=== PATIENT | female | born 1960 | race Caucasian/White ===

== ENCOUNTER 2019-10-10 15:16 | Observation (INO) | payer MEDICARE, SELFPAY ==
[2019-10-10 15:19] VITALS: BP 159/77; PULSE 111; RESP 18; TEMP 36.8; O2SAT 96
--- NOTE | 2019-10-10 15:38 | W.ED.GENAD ---
Discharge Plan Disposition Patient Disposition: [facility] INPATIENT Condition: Stable Discharge Details Chief Complaint: GI Bleed Clinical Impression: Colitis Primary Care Provider: Tanya Boston ED Provider: Saeed Puente Home Meds and New Rx's Prescriptions: No Action multivitamin [ESSENTIAL One Daily] 1 EACH tablet 1 tab PO DAILY RF: 0 ascorbic acid (vitamin C) [Vitamin C] 500 MG tablet 1 tab PO DAILY RF: 0 ibuprofen [Motrin IB] 200 MG tablet 2 tab PO PRN RF: 0 Probiotic 1 EACH capsule 1 ea PO DAILY RF: 0 GenTeal Mild 15 ML drops 1 drp OU PRN PRNRF: 0 naltrexone 50 mg Tablet 4.5 mg PO DAILY RF: 0 flaxseed oil 1,000 mg Capsule 1,000 mg PO DAILY RF: 0 aspirin 81 mg Tablet,Chewable 81 mg PO DAILY RF: 0 Medical Decision Making 59-year-old female with complex regional pain syndrome, presents with day 5 of intermittent episodes of crampy lower abdominal pain with associated loose watery stools and some spotting of blood with the stool today. She feels mildly weak and states she vomited once. She had chills but no documented fever. Rectal exam is without mass and guaiac negative mucus present. She arrives with a temp of 36.8, tachycardic with a pulse of 110, blood pressure 159/77. Tender in the abdomen on exam. Differential diagnosis includes colitis, diverticulitis, appendicitis. Patient had IV access established with antecedent EMLA cream, was referred for laboratory testing and CT scan. The diagnostic studies reveal a white blood cell count is elevated at 13, hematocrit 39, platelets 422 which may be acute phase reactant. She does have a left shift with elevated ANC. Chemistries reassuring. CT scan reveals thickening in the proximal sigmoid colon most consistent with colitis. Note of appendix at the upper limits of normal with subtle fat stranding present. Most consistent with acute proximal colitis. Discussed with Dr. Olson. Will admit as an observation overnight. Lab Data Lab results reviewed: Yes I reviewed the patient's lab results. Labs: Laboratory Results - last 24 hr 10/10/19 10/10/19 10/10/19 16:00 16:00 16:00 WBC 13.25 H RBC 4.37 Hgb 13.0 Hct 39.6 MCV 90.6 MCH 29.7 MCHC 32.8 RDW 13.4 Plt Count 422 H MPV 8.5 Immature Gran % 0.2 Neutrophils % 74.5 Lymphocytes % 16.0 Monocytes % 8.8 Eosinophils % 0.3 Basophils % 0.2 Absolute Neutrophils 9.87 H Absolute Lymphocytes 2.12 Absolute Monocytes 1.17 H Absolute Eosinophils 0.04 Absolute Basophils 0.03 PT 10.6 INR 1.1 Sodium 140 Potassium 3.3 L Chloride 103 Carbon Dioxide 24.5 Anion Gap 12.5 H BUN 10 Creatinine 0.69 Estimated GFR/1.73 m2 >= 60.00 Glucose 108 H Calcium 9.2 Total Bilirubin 0.5 AST 28 ALT 41 Alkaline Phosphatase 76 Total Protein 7.9 Albumin 3.6 HPI General Mode of arrival: ambulatory. Date/Time Provider Initiated Documentation: 10/10/19 15:23. Limitations to Documentation: no limitations. Information obtained by: patient. History of Present Illness 59 year old F presents to the emergency department with the chief complaint of Lower abdominal pain with small amounts of rectal bleeding, described as moderate, Quality is described as dull, and is localized to the abdomen. Patient reports no radiation. Patient started experiencing this day(s) and it has been intermittent. No relieving factors improve symptom(s), No exacerbating factors reported . Patient notes loss of appetite, nausea/vomiting and other (Watery loose diarrhea). Patient did receive the following treatments prior to arrival, none Related Data Home Medications Medication Instructions Recorded Confirmed ascorbic acid (vitamin C) [Vitamin 1 tab PO DAILY 01/31/13 10/10/19 C] ibuprofen [Motrin Ib] 2 tab PO PRN 01/31/13 10/10/19 multivitamin [Essential One Daily] 1 tab PO DAILY 01/31/13 10/10/19 Lactobacillus acidophilus 1 ea PO DAILY 12/29/14 10/10/19 [Probiotic] artificial tears(hypromellose) 1 drp OU PRN PRN 12/29/14 10/10/19 [Genteal Mild] aspirin 81 mg PO DAILY 10/10/19 10/10/19 flaxseed oil 1,000 mg PO DAILY 10/10/19 10/10/19 naltrexone 4.5 mg PO DAILY 10/10/19 10/10/19 Allergies Allergy/AdvReac Type Severity Reaction Status Date / Time sodium lauryl sulfate Allergy Intermediate Skin Rash Unverified 10/10/19 15:22 clopidogrel bisulfate Allergy Mild Skin Rash Unverified 10/10/19 15:22 [From Plavix] methylprednisolone AdvReac HEADACHE Unverified 10/10/19 15:22 General Stated Complaint: GI Bleed GUY: 3 Review of Systems Narrative: No food exposures or travel, no suspicious sick contacts. Denies chest pain, shortness of breath, and no change to chronic pain. [facility] Family History Mother Diabetes Stroke Father Diabetes Heart disease Sister No problems noted. Sister No problems noted. Sister No problems noted. Brother No problems noted. Brother No problems noted. Grandfather Stroke Grandmother Neoplasm Son No problems noted. Social History Smoking/Tobacco Use Status: Former Tobacco Use Drug use: Never Exam Narrative Exam Narrative: GEN: awake, alert, oriented 3. Pleasant, well groomed, interactive. HEAD: Normocephalic, atraumatic ENT: Mucous membranes moist, oropharynx unremarkable, External ear exam unremarkable EYES: PERRL, EOMI NECK: Full ROM, no MARCUS, no menigismus CHEST/RESP: Nontender, clear to auscultation bilateral, no wheeze/rhonchi/rales CARDIOVASCULAR: Regular and tachycardic, no murmur, rub julian. 2+ Rad pulse bilateral ABDOMEN: Soft, right greater than left lower abdominal tenderness present, no mass. +Bowel sounds EXT: Full ROM, no edema, no rash Neuro: Grossly normal neurologic exam, conversant, interactive. Psych: Speech fluent, thoughts congruent, affect normal Course Vital Signs Vital signs: Vital Signs Temperature 36.8 C 10/10/19 15:19 Pulse 111 H 10/10/19 15:19 Respiratory Rate 18 10/10/19 15:19 Blood Pressure 159/77 H 10/10/19 15:19 Pulse Oximetry 96 10/10/19 15:19 Temperature 36.8 C 10/10/19 15:19 Temperature Source Skin 10/10/19 15:19 Pulse 111 H 10/10/19 15:19 Respiratory Rate 18 10/10/19 15:19 Blood Pressure 159/77 H 10/10/19 15:19 Blood Pressure Position Sitting 10/10/19 15:19 Pulse Oximetry 96 10/10/19 15:19 Oxygen Delivery Method Room Air 10/10/19 15:19 Oxygen Flow Rate 0 10/10/19 15:19 Pain Level 6 10/10/19 15:19
[2019-10-10] MEDS: Lidocaine/Prilocaine Cream 5 GM TUBE TP (15:45)
[2019-10-10 16:17] LABS: Abs Immature Grans 0.03 k/cumm (0.0-0.09); Absolute Basophil Count 0.03 k/cumm (0.0-0.2); Absolute Eosinophil Count 0.04 k/cumm (0.0-0.7); Absolute Lymphocyte Count 2.12 k/cumm (1.2-3.4); Absolute Monocyte Count 1.17 k/cumm (0.11-0.7); Absolute Neutrophil Count 9.87 k/cumm (1.2-6.7); Basophils % 0.2; Eosinophils % 0.3; HCT 39.6 % (36.0-46.0); Immature Grans % 0.2; Mean Corp. HGB Concentration 32.8 g/dL (32.0-36.0); Mean Corpuscular Hemoglobin 29.7 pg (27.0-33.0); Mean Corpuscular Volume 90.6 fL (80-95); Mean Platelet Volume 8.5 fL (8.0-11.0); Monocytes % 8.8; Neutrophils % 74.5; Platelet Count 422 x1000/uL (130-400); RBC 4.37 m/cumm (4.00-5.20); RBC Distribution Width 13.4 % (11.7-14.6); White Blood Cell Count 13.25 k/cumm (4.4-10.8)
[2019-10-10] MEDS: Normal Saline 1,000 ML 125 ML IV (16:18)
[2019-10-10] MEDS: Normal Saline Flush 10 ML SYR IVP (16:18)
[2019-10-10 16:27] LABS: INR 1.1 (0.9-1.1); Prothrombin Time 10.6 sec (9.3-11.0)
[2019-10-10 16:30] VITALS: BP 134/74; PULSE 93; RESP 18; TEMP 36.2; O2SAT 94
[2019-10-10 16:31] LABS: ALT 41 U/L (14-59); AST 28 U/L (15-37); Albumin 3.6 g/dL (3.4-5.0); Alkaline Phosphatase 76 U/L (46-116); Anion Gap 12.5 mmol/L (3-11); BUN 10 mg/dL (7-18); Bilirubin, Total 0.5 mg/dL (0.2-1.0); CO2 24.5 mmol/L (21.0-32.0); CREATININE 0.69 mg/dL (0.55-1.02); Calcium 9.2 mg/dL (8.5-10.1); Chloride 103 mmol/L (98-107); Glucose 108 mg/dL (74-106); Potassium 3.3 mmol/L (3.5-5.1); Sodium 140 mmol/L (136-145); Total Protein 7.9 g/dL (6.4-8.2)
[2019-10-10] MEDS: Omnipaque 350 MG/ML 100 ML BTL IJ (16:39)
--- NOTE | 2019-10-10 17:00 | DI.CT_ITS ---
EXAM: CT ABDOMEN PELVIS W CLINICAL HISTORY: R > L lower abd pain and hematochezia TECHNIQUE: Imaging Protocol: Axial computed tomography images with coronal and sagittal reformatted images were created and reviewed CONTRAST MATERIAL: Intravenous: Omnipaque 350 Contrast volume:100 mL contrast route:IV - Oral: No COMPARISON: No exams were available for comparison FINDINGS: ABDOMEN: Lung Bases: Normal where visualized. Liver: There does appear to be diffuse decreased attenuation of the liver suggesting hepatic steatosi s. No measurable mass. The portal, superior mesenteric and splenic veins are patent. Gallbladder and biliary tract: No radiodense calculus or dilation. Pancreas: Normal density, no abnormal calcifications or inflammatory process. Spleen: Normal. Incidental note is made of a small accessory spleen. Kidneys: Normal size, contour and axis. No radiodense stones or obstructive uropathy. There are tiny hypodensities seen within both kidneys. They are too small for further characterization but likely r eflect small cysts. There is a 1.6 centimeter cyst in the lower pole of the right kidney. Adrenal glands: No masses seen. Abdominal Aorta: Abdominal portion non-dilated. PELVIS: Bladder: Symmetric distention, no gross wall thickening. Bowel: There is marked mucosal thickening seen in the proximal sigmoid colon. Mild increased attenua tion in the surrounding fat is noted. The appendix is fluid filled. It measures 8 millimeters in di ameter. Mild increased stranding in the periappendiceal fat is noted. No appendicolith is present. The remainder of the bowel is unremarkable. Peritoneal cavity: No ascites, collection or mesenteric inflammatory response. Bones: Within normal limits. There is a mild left convex scoliotic curvature of the lumbar spine. Reproductive organs: The uterus is enlarged. There are several masses seen within the uterus. These likely reflect uterine fibroids. Lymph nodes: There is a portacaval lymph node measuring 0.6 centimeters in short axis diameter. Impression: 1. Marked mucosal thickening in the proximal sigmoid colon consistent with colitis. Likely reflects an inflammatory or infectious colitis. Ischemic colitis is considered less likely. 2. Appendix at the upper limits normal with periappendiceal inflammatory change acute appendicitis ca nnot be excluded. 3. Multiple uterine masses most consistent with fibroid uterus. Pelvic ultrasound may be obtained if clinically appropriate. DATA REPOSITORY: All CT scans at this facility are submitted to the National Radiology Data Registry (NRDR) Dose Index Registry (DIR) with the [employer] (A[employer]). RADIATION OPTIMIZATION: All CT scans at this facility use at least one of these dose optimization te chniques: automated exposure control; mA and/or kV adjustment per patient size (includes targeted exa ms where dose is matched to clinical indication); or iterative reconstruction.
--- NOTE | 2019-10-10 17:26 | DI.VRAD_ITS ---
PROCEDURE INFORMATION: Exam: CT Abdomen And Pelvis With Contrast Exam date and time: 10/10/2019 4:58 PM Age: 59 years old Clinical history: Abdominal pain; Other: Pain r>l, hematochezia TECHNIQUE: Imaging protocol: Computed tomography of the abdomen and pelvis with intravenous contrast. Contrast material: OMNIPAQUE 350; Contrast volume: 100 ml; Contrast route: IV 20G LAC; COMPARISON: No relevant prior studies available. FINDINGS: Liver: Normal. No mass. Gallbladder and bile ducts: Normal. No calcified stones. No ductal dilation. Pancreas: Normal. No ductal dilation. Spleen: 1 cm splenule. The spleen is unremarkable. Adrenals: Normal. No mass. Kidneys and ureters: Multiple sub-5 mm low density left renal lesions too small to characterize but statistically most likely representing cysts. 16mm right central lower pole renal cyst is with adjacent smaller lesion too small to characterize. Additional tiny low-density focus upper pole of right kidney too small to characterize. Stomach and bowel: Marked mucosal thickening proximal half of sigmoid colon with adjacent fat stranding Appendix: 8 mm diameter of proximal appendix (series 7, image 44) at the upper limits of normal. There is some minimal adjacent fat stranding. Intraperitoneal space: Unremarkable. No free air. No significant fluid collection. Vasculature: Unremarkable. No abdominal aortic aneurysm. Lymph nodes: 6 mm short axis lymph node in portacaval space. Bladder: Unremarkable as visualized. Reproductive: Enlarged uterus with multiple inhomogeneous masses consistent with uterine fibroids with the largest on the right measuring 4.2 cm in diameter. Bones/joints: Minimal convex left scoliosis lumbar spine. Soft tissues: Unremarkable. IMPRESSION: 1. Marked mucosal thickening proximal half of sigmoid colon most consistent with colitis. Infectious or inflammatory causes would be most likely with vascular left likely. 2. Appendix at the upper limits of normal with a subtle fat stranding. Acute appendicitis would be difficult to entirely exclude in the appropriate clinical setting. 3. Nonspecific 6 mm short axis portal caval lymph node. 4. Multiple uterine masses most consistent with fibroid uterus. Confirmation with pelvic ultrasound may be beneficial if clinically indicated. Dictated and Authenticated by: Issa Pearce MD. Ordering:DON Tipton MD
[2019-10-10 17:30] VITALS: BP 142/79; PULSE 92; TEMP 37; O2SAT 96
[2019-10-10 17:45] LABS: Bilirubin Negative (Negative); Blood Trace-intact (Negative); Clarity Clear (Clear); Glucose Negative (Negative); Ketones Trace mg/dL (Negative); Leukocyte Esterase Negative (Negative); Nitrite Negative (Negative); Urobilinogen 0.2 EU/dL (Up TO 0.2)
[2019-10-10] MEDS: PIPERACILLIN/TAZO 3.375 GM in Normal Saline 50 ML IVPB (17:47)
[2019-10-10 18:10] LABS: Bacteria Negative HPF (Negative); C & S Indicated? No; Casts Negative LPF (Negative); Crystals Negative HPF (Negative); Epithelial Cells Few HPF (Negative); Mucus Negative (Negative); Other Cells Negative (Negative); RBC 0-2 HPF (0-2); WBC 0-2 HPF (0-5)
[2019-10-10 18:11] VITALS: BP 128/77; PULSE 78; RESP 16; TEMP 36.6; O2SAT 96
[2019-10-10 18:32] VITALS: BP 153/74; PULSE 104; RESP 18; TEMP 37.6; O2SAT 94
[2019-10-10] MEDS: POTASSIUM CHLORIDE/0.9% NACL 1,000 ML 100 MEQ IV (18:52)
[2019-10-10 19:26] VITALS: BP 133/78; PULSE 96; RESP 16; TEMP 37.2; O2SAT 95
[2019-10-10] MEDS: ACETAMINOPHEN 1,000 MG/100 ML BTL 400 MG IVPB (20:47)
[2019-10-11] MEDS: Piperacillin/Tazobactam 3.375 GM VIAL (00:31)
[2019-10-11] MEDS: PIPERACILLIN/TAZO 3.375 GM in Normal Saline 50 ML IVPB ×2 (00:31→05:33)
[2019-10-11 00:47] VITALS: BP 116/72; PULSE 86; RESP 16; TEMP 37.2; O2SAT 93
[2019-10-11] MEDS: POTASSIUM CHLORIDE/0.9% NACL 1,000 ML 100 MEQ IV (06:38)
[2019-10-11] MEDS: ACETAMINOPHEN 1,000 MG/100 ML BTL 400 MG IVPB (06:38)
[2019-10-11 07:01] LABS: Abs Immature Grans 0.02 k/cumm (0.0-0.09); Absolute Basophil Count 0.03 k/cumm (0.0-0.2); Absolute Eosinophil Count 0.09 k/cumm (0.0-0.7); Absolute Lymphocyte Count 1.63 k/cumm (1.2-3.4); Absolute Monocyte Count 0.97 k/cumm (0.11-0.7); Absolute Neutrophil Count 8.02 k/cumm (1.2-6.7); Basophils % 0.3; Eosinophils % 0.8; HCT 36.7 % (36.0-46.0); HGB 11.9 g/dL (12.0-15.5); Immature Grans % 0.2; Lymphocytes % 15.1; Mean Corp. HGB Concentration 32.4 g/dL (32.0-36.0); Mean Corpuscular Hemoglobin 29.8 pg (27.0-33.0); Mean Platelet Volume 8.6 fL (8.0-11.0); Neutrophils % 74.6; Platelet Count 387 x1000/uL (130-400); RBC 3.99 m/cumm (4.00-5.20); RBC Distribution Width 13.5 % (11.7-14.6); White Blood Cell Count 10.76 k/cumm (4.4-10.8)
[2019-10-11 07:19] LABS: Anion Gap 9.1 mmol/L (3-11); BUN 5 mg/dL (7-18); CO2 24.9 mmol/L (21.0-32.0); Calcium 8.3 mg/dL (8.5-10.1); Chloride 107 mmol/L (98-107); Glucose 109 mg/dL (74-106); Potassium 3.5 mmol/L (3.5-5.1); Sodium 141 mmol/L (136-145)
[2019-10-11 07:20] VITALS: BP 120/72; PULSE 83; RESP 18; TEMP 37.1; O2SAT 94
--- NOTE | 2019-10-11 07:58 | W.PM.HP.N ---
Date of service: 10/11/19 Time of Service: 07:58 Assessment and Plan Assessment and plan (1) Colitis: Status: Acute Assessment and plan: Patient was kept overnight for observation. She tolerated clear liquids over night and her abdominal pain has resolved. She denies having any nausea or vomiting. Will trial regular diet with breakfast. Discussed that we would recommend her having a Colonoscopy as an out patient. Patient expressed that she would like to see GI at [facility]. She will follow up with her PCP regarding this. If tolerating regular diet with breakfast, will send her home later today on antibiotics. History of Present Illness History of Present Illness Chief Complaint: Abdominal pain, Colitis, GI bleed Narrative: Patient presented to the ER with complaints of diarrhea and spotting of blood with BMs. CT scan in ER showed Colitis. This morning she reports significant improvement in her abdominal pain and has been tolerating clear liquids. She reports that she has been passing flatus. She states that she has never had a screening Colonoscopy. Review of Systems Constitutional Constitutional: Reports as per HPI Respiratory Respiratory: Denies cough and Denies wheezing Gastrointestinal Gastrointestinal: Reports abdominal pain (Improved overnight) and Reports change in bowel habits Allergic/Immunologic Allergic/Immunologic: Denies wheezing PFSH Family History Mother Diabetes Stroke Father Diabetes Heart disease Sister No problems noted. Sister No problems noted. Sister No problems noted. Brother No problems noted. Brother No problems noted. Grandfather Stroke Grandmother Neoplasm Son No problems noted. Social History Smoking/Tobacco Use Status: Former Tobacco Use Drug use: Never Meds Home Medications and Allergies Home Medications Medication Instructions Recorded Confirmed Type ascorbic acid (vitamin C) [Vitamin 1 tab PO DAILY 01/31/13 10/10/19 History C] ibuprofen [Motrin Ib] 2 tab PO PRN 01/31/13 10/10/19 History multivitamin [Essential One Daily] 1 tab PO DAILY 01/31/13 10/10/19 History Lactobacillus acidophilus 1 ea PO DAILY 12/29/14 10/10/19 History [Probiotic] artificial tears(hypromellose) 1 drp OU PRN PRN 12/29/14 10/10/19 History [Genteal Mild] aspirin 81 mg PO DAILY 10/10/19 10/10/19 History flaxseed oil 1,000 mg PO DAILY 10/10/19 10/10/19 History naltrexone 4.5 mg PO DAILY 10/10/19 10/10/19 History Allergies Allergy/AdvReac Type Severity Reaction Status Date / Time sodium lauryl sulfate Allergy Intermediate Skin Rash Unverified 10/10/19 15:22 clopidogrel bisulfate Allergy Mild Skin Rash Unverified 10/10/19 15:22 [From Plavix] methylprednisolone AdvReac HEADACHE Unverified 10/10/19 15:22 Exam Const General: cooperative, healthy appearing and comfortable Orientation: alert and oriented x3 Resp Effort & Inspection: normal respiratory effort, no audible wheezes and no cough GI Inspection: normal to inspection and non-distended Palpation: soft, no guarding and nontender Auscultation: normal bowel sounds Results Labs Result diagrams: 10/11/19 06:38 10/11/19 06:38 Labs: Laboratory Results - last 24 hr 10/10/19 10/10/19 10/10/19 16:00 16:00 16:00 WBC 13.25 H RBC 4.37 Hgb 13.0 Hct 39.6 MCV 90.6 MCH 29.7 MCHC 32.8 RDW 13.4 Plt Count 422 H MPV 8.5 Immature Gran % 0.2 Neutrophils % 74.5 Lymphocytes % 16.0 Monocytes % 8.8 Eosinophils % 0.3 Basophils % 0.2 Absolute Neutrophils 9.87 H Absolute Lymphocytes 2.12 Absolute Monocytes 1.17 H Absolute Eosinophils 0.04 Absolute Basophils 0.03 PT 10.6 INR 1.1 Sodium 140 Potassium 3.3 L Chloride 103 Carbon Dioxide 24.5 Anion Gap 12.5 H BUN 10 Creatinine 0.69 Estimated GFR/1.73 m2 >= 60.00 Glucose 108 H Calcium 9.2 Total Bilirubin 0.5 AST 28 ALT 41 Alkaline Phosphatase 76 Total Protein 7.9 Albumin 3.6 Urine Color Urine Clarity Urine pH Ur Specific [place] Urine Protein Urine Ketones Urine Blood Urine Nitrite Urine Bilirubin Urine Urobilinogen Ur Leukocyte Esterase Urine RBC Urine WBC Ur Epithelial Cells Urine Crystals Urine Bacteria Urine Casts Urine Mucus Urine Other Ur Culture Indicated? Urine Glucose Patient ABO/Rh Antibody Screen 10/10/19 10/10/19 10/11/19 16:00 17:22 06:38 WBC RBC Hgb Hct MCV MCH MCHC RDW Plt Count MPV Immature Gran % Neutrophils % Lymphocytes % Monocytes % Eosinophils % Basophils % Absolute Neutrophils Absolute Lymphocytes Absolute Monocytes Absolute Eosinophils Absolute Basophils PT INR Sodium 141 Potassium 3.5 Chloride 107 Carbon Dioxide 24.9 Anion Gap 9.1 BUN 5 L Creatinine 0.70 Estimated GFR/1.73 m2 >= 60.00 Glucose 109 H Calcium 8.3 L Total Bilirubin AST ALT Alkaline Phosphatase Total Protein Albumin Urine Color Yellow Urine Clarity Clear Urine pH 7.0 Ur Specific [place] 1.010 Urine Protein Negative Urine Ketones Trace H Urine Blood Trace-intact H Urine Nitrite Negative Urine Bilirubin Negative Urine Urobilinogen 0.2 Ur Leukocyte Esterase Negative Urine RBC 0-2 Urine WBC 0-2 Ur Epithelial Cells Few Urine Crystals Negative Urine Bacteria Negative Urine Casts Negative Urine Mucus Negative Urine Other Negative Ur Culture Indicated? No Urine Glucose Negative Patient ABO/Rh A Positive Antibody Screen Negative 10/11/19 06:38 WBC 10.76 RBC 3.99 L Hgb 11.9 L Hct 36.7 MCV 92.0 MCH 29.8 MCHC 32.4 RDW 13.5 Plt Count 387 MPV 8.6 Immature Gran % 0.2 Neutrophils % 74.6 Lymphocytes % 15.1 Monocytes % 9.0 Eosinophils % 0.8 Basophils % 0.3 Absolute Neutrophils 8.02 H Absolute Lymphocytes 1.63 Absolute Monocytes 0.97 H Absolute Eosinophils 0.09 Absolute Basophils 0.03 PT INR Sodium Potassium Chloride Carbon Dioxide Anion Gap BUN Creatinine Estimated GFR/1.73 m2 Glucose Calcium Total Bilirubin AST ALT Alkaline Phosphatase Total Protein Albumin Urine Color Urine Clarity Urine pH Ur Specific [place] Urine Protein Urine Ketones Urine Blood Urine Nitrite Urine Bilirubin Urine Urobilinogen Ur Leukocyte Esterase Urine RBC Urine WBC Ur Epithelial Cells Urine Crystals Urine Bacteria Urine Casts Urine Mucus Urine Other Ur Culture Indicated? Urine Glucose Patient ABO/Rh Antibody Screen Last Vital Signs Temp 37.2 C 10/11/19 00:47 Pulse 86 10/11/19 00:47 Resp 16 10/11/19 00:47 BP 116/72 10/11/19 00:47 Pulse Ox 93 L 10/11/19 00:47
--- NOTE | 2019-10-11 08:42 | DSE_ITS ---
Date of service: 10/11/19 Time of Service: 08:42 DS: Diagnosis Discharge Diagnosis (1) Colitis: Status: Acute Discharge Plan Disposition Patient Disposition: HOME Condition: Stable Discharge Details Chief Complaint: GI Bleed Clinical Impression: Colitis Reason For Visit: COLITIS Admit Date/Time: 10/10/19 17:36 Admit Provider: Shirlene Olson Attending Provider: Shirlene Olson Primary Care Provider: Tanya Boston ED Provider: Saeed Puente Hospital Course Hospital Course: Mrs. Reese is a 59 year old female admitted yesterday evening with inflammation of the TI, cecum, ascending colon as well as around the appendix. WBC count was slightly elevated. Otherwise labs were unremarkable. Patient admitted with colitis. She states she has 2 nephews with Crohns. Patients pain today is much better. She is having intermittent cramping pain. She is tolerating clear liquids. She wants to go home. Patient wants to be seen by a Gastroeneterologist. Will have patient follow up with PCP and referral can be done by them. I will send patient home on Antibiotics just because this may be bacterial in nature. Home Meds and New Rx's Prescriptions: Continued multivitamin [ESSENTIAL One Daily] 1 EACH tablet 1 tab PO DAILY RF: 0 ascorbic acid (vitamin C) [Vitamin C] 500 MG tablet 1 tab PO DAILY RF: 0 ibuprofen [Motrin IB] 200 MG tablet 2 tab PO PRN RF: 0 Probiotic 1 EACH capsule 1 ea PO DAILY RF: 0 GenTeal Mild 15 ML drops 1 drp OU PRN PRNRF: 0 naltrexone 50 mg Tablet 4.5 mg PO DAILY RF: 0 flaxseed oil 1,000 mg Capsule 1,000 mg PO DAILY RF: 0 aspirin 81 mg Tablet,Chewable 81 mg PO DAILY RF: 0 Discharge Instructions Instructions: Low Fiber Diet (GEN) Additional Instructions: Diet: Continue with clear liquids for 24 hours and then slowely advance to a low fiber and soft diet. Follow up with your PCP within 7-10 days Antibiotics: Flagyl 500 mg tid x 7 days Cipro 500 mg bid x 7 days Referrals: Tanya Boston MD [Primary Care Provider] - (within 1 week) Activity:: Activity as Tolerated Equipment/Supplies:: No Equipment Needed Diet:: low fiber DS: Summary Status at Discharge Functional status at discharge: independent ambulation Overall status at discharge: patient is back to baseline Mental Status: mental status grossly normal Speech and Movement: speech and movement normal Mood: congruent mood Affect: normal affect Exam GI Palpation: soft, no hepatosplenomegaly and tender in the RLQ Psych Mental Status: mental status grossly normal Speech and Movement: speech and movement normal Mood: congruent mood Affect: normal affect DS: Data Vitals/I&O Vitals and I&O: Vital Signs Temperature 98.8 F 10/11/19 07:20 Temperature Source Tympanic 10/11/19 07:20 Pulse 83 10/11/19 07:20 Pulse Rhythm Regular 10/11/19 00:47 Respiratory Rate 18 10/11/19 07:20 Respiratory Effort Non-Labored 10/11/19 00:47 Respiratory Depth Normal 10/11/19 00:47 Respiratory Pattern Normal 10/11/19 00:47 Blood Pressure 120/72 10/11/19 07:20 Blood Pressure Position Sitting 10/10/19 15:19 Pulse Oximetry 94 L 10/11/19 07:20 Oxygen Delivery Method Room Air 10/11/19 07:20 Oxygen Flow Rate 0 10/11/19 07:20 Pain Level 2 10/11/19 07:20 Intake & Output 10/10/19 10/10/19 10/11/19 11:59 23:59 11:59 Intake Total 480.833 / 541.209 9413 / 1580 Output Total 600 / 600 Balance 480.833 / 480.833 980 / 980 Weight 182 lb 0.006 oz Intake: IV 480.833 / 024.230 3242 / 1100 Oral 480 / 480 Output: Urine 600 / 600 Other: Urine Color Yellow Light [place] Urine Appearance Clear Clear Urine Odor Normal Normal Comment missed hat Emesis Description None Voiding Methods Toilet Toilet Data Completed and Pending Labs on day of discharge: Labs from last 24 hours 10/11/19 10/11/19 10/10/19 06:38 06:38 17:24 WBC 10.76 RBC 3.99 L Hgb 11.9 L Hct 36.7 MCV 92.0 MCH 29.8 MCHC 32.4 RDW 13.5 Plt Count 387 MPV 8.6 Immature Gran % 0.2 Neutrophils % 74.6 Lymphocytes % 15.1 Monocytes % 9.0 Eosinophils % 0.8 Basophils % 0.3 Absolute Neutrophils 8.02 H Absolute Lymphocytes 1.63 Absolute Monocytes 0.97 H Absolute Eosinophils 0.09 Absolute Basophils 0.03 PT INR Sodium 141 Potassium 3.5 Chloride 107 Carbon Dioxide 24.9 Anion Gap 9.1 BUN 5 L Creatinine 0.70 Estimated GFR/1.73 m2 >= 60.00 Glucose 109 H Calcium 8.3 L Total Bilirubin AST ALT Alkaline Phosphatase Total Protein Albumin Urine Color Urine Clarity Urine pH Ur Specific [place] Urine Protein Urine Ketones Urine Blood Urine Nitrite Urine Bilirubin Urine Urobilinogen Ur Leukocyte Esterase Urine RBC Urine WBC Ur Epithelial Cells Urine Crystals Urine Bacteria Urine Casts Urine Mucus Urine Other Ur Culture Indicated? Urine Glucose Stool Campylobacter PCR Pending Stool Salmonella PCR Pending Stool Shigella PCR Pending Shiga Toxin (PCR) Pending Patient ABO/Rh Antibody Screen 10/10/19 10/10/19 10/10/19 17:22 16:00 16:00 WBC RBC Hgb Hct MCV MCH MCHC RDW Plt Count MPV Immature Gran % Neutrophils % Lymphocytes % Monocytes % Eosinophils % Basophils % Absolute Neutrophils Absolute Lymphocytes Absolute Monocytes Absolute Eosinophils Absolute Basophils PT 10.6 INR 1.1 Sodium Potassium Chloride Carbon Dioxide Anion Gap BUN Creatinine Estimated GFR/1.73 m2 Glucose Calcium Total Bilirubin AST ALT Alkaline Phosphatase Total Protein Albumin Urine Color Yellow Urine Clarity Clear Urine pH 7.0 Ur Specific [place] 1.010 Urine Protein Negative Urine Ketones Trace H Urine Blood Trace-intact H Urine Nitrite Negative Urine Bilirubin Negative Urine Urobilinogen 0.2 Ur Leukocyte Esterase Negative Urine RBC 0-2 Urine WBC 0-2 Ur Epithelial Cells Few Urine Crystals Negative Urine Bacteria Negative Urine Casts Negative Urine Mucus Negative Urine Other Negative Ur Culture Indicated? No Urine Glucose Negative Stool Campylobacter PCR Stool Salmonella PCR Stool Shigella PCR Shiga Toxin (PCR) Patient ABO/Rh A Positive Antibody Screen Negative 10/10/19 10/10/19 16:00 16:00 WBC 13.25 H RBC 4.37 Hgb 13.0 Hct 39.6 MCV 90.6 MCH 29.7 MCHC 32.8 RDW 13.4 Plt Count 422 H MPV 8.5 Immature Gran % 0.2 Neutrophils % 74.5 Lymphocytes % 16.0 Monocytes % 8.8 Eosinophils % 0.3 Basophils % 0.2 Absolute Neutrophils 9.87 H Absolute Lymphocytes 2.12 Absolute Monocytes 1.17 H Absolute Eosinophils 0.04 Absolute Basophils 0.03 PT INR Sodium 140 Potassium 3.3 L Chloride 103 Carbon Dioxide 24.5 Anion Gap 12.5 H BUN 10 Creatinine 0.69 Estimated GFR/1.73 m2 >= 60.00 Glucose 108 H Calcium 9.2 Total Bilirubin 0.5 AST 28 ALT 41 Alkaline Phosphatase 76 Total Protein 7.9 Albumin 3.6 Urine Color Urine Clarity Urine pH Ur Specific [place] Urine Protein Urine Ketones Urine Blood Urine Nitrite Urine Bilirubin Urine Urobilinogen Ur Leukocyte Esterase Urine RBC Urine WBC Ur Epithelial Cells Urine Crystals Urine Bacteria Urine Casts Urine Mucus Urine Other Ur Culture Indicated? Urine Glucose Stool Campylobacter PCR Stool Salmonella PCR Stool Shigella PCR Shiga Toxin (PCR) Patient ABO/Rh Antibody Screen [facility] Family History Mother Diabetes Stroke Father Diabetes Heart disease Sister No problems noted. Sister No problems noted. Sister No problems noted. Brother No problems noted. Brother No problems noted. Grandfather Stroke Grandmother Neoplasm Son No problems noted. Social History Smoking/Tobacco Use Status: Former Tobacco Use Drug use: Never
[2019-10-12 11:21] LABS: Campylobacter PCR Negative (Negative); Salmonella PCR Negative (Negative); Shiga Toxin PCR Negative (Negative); Shigella/Enteroinvasive Ecoli Negative (Negative)
== END 2019-10-11 10:28 | disposition home or self-care (01) ==
LOC: ER 17:59 → MS 18:21
PROVIDERS: Admitting Provider Surgery; Emergency Provider Emergency Medicine; PCP Family Medicine; Visit Provider Surgery
DX: K52.9 Noninfective gastroenteritis and colitis, unspecified (principal)
CPT/HCPCS: 36415; 80048; 80053; 86850; 86900; 86901; 87505; 96361; 96365; 99217; 99223; 99236; 99285; 74177; 81003; 81015; 85025; 85610; 87324; 99284; G0378; J0131; J2543; J3490

== ENCOUNTER 2019-12-22 16:06 | Outpatient (REF) | payer MEDICARE, SELFPAY ==
--- NOTE | 2019-12-22 11:45 | PAPFT_PTH ---
PATIENT: Nena Reese LOC: NCN #:[id number] AGE/SX: 59/F ROOM: RE12/22/[address]: Fabiana Voss : 1960 BED: DIS: 12/22/2019 SPEC #: [id number] RECD: 12/23/19 12:58 STATUS: ANDREI REHumaira #: [id number] DELILAH: 12/22/19 11:[address]: Fabiana Voss DEPT: [facility] Cytology RECD BY: Clara Harris Tissues: 1 - CX/ENDOCX FOR PAP SMEARS Procedures: PAP THIN PREP/[facility] Screening HPV DNA PROBE Comments: [id number]
== END 2019-12-22 16:26 ==
LOC: NCHCN 16:06
PROVIDERS: PCP Family Medicine; Visit Provider Family Medicine
DX: Z12.4 Encounter for screening for malignant neoplasm of cervix (principal); Z11.51 Encounter for screening for human papillomavirus (HPV); Z01.419 Encounter for gynecological examination (general) (routine) without abnormal findings
CPT/HCPCS: 88142; 87624

== ENCOUNTER 2020-02-28 17:05 | Outpatient (CLI) | payer MEDICARE, SELFPAY ==
[2020-02-29 15:38] LABS: COVID-19 RT-PCR Result Negative (Negative)
== END 2020-02-28 17:25 ==
PROVIDERS: PCP Family Medicine; Visit Provider Physician Assistant
DX: R06.02 Shortness of breath (principal)
CPT/HCPCS: U0003

== ENCOUNTER 2020-03-08 14:31 | Outpatient (CLI) | payer MEDICARE, SELFPAY ==
--- NOTE | 2020-03-08 13:58 | DI.RAD_ITS ---
EXAM: XR CHEST 2V PA LATERAL CLINICAL HISTORY: COUGH, R05 TECHNIQUE: 2D digital imaging was performed. COMPARISON: No exams were available for comparison FINDINGS: MEDIASTINUM: Normal. HEART: Normal. PULMONARY VASCULATURE: Normal. LUNGS: Clear. PLEURAL SPACE: No pleural effusion or pneumothorax. BONE:Normal. OTHER FINDINGS:Normal. IMPRESSION: No acute pulmonary findings. DATA REPOSITORY: RADIATION DOSE DELIVERED:
== END 2020-03-08 14:51 ==
PROVIDERS: PCP Family Medicine; Visit Provider Nurse Practitioner Family
DX: R05 Cough (principal)
CPT/HCPCS: 71046